=== PATIENT | female | born 1970 | race Caucasian/White ===

== ENCOUNTER 2017-11-04 09:46 | Emergency (ER) | payer SELFPAY | END 2017-11-04 10:41 | disposition home or self-care (01) | LOC: ERS 09:46 | DX: J40 Bronchitis, not specified as acute or chronic (principal); E03.9 Hypothyroidism, unspecified; F31.9 Bipolar disorder, unspecified; F41.9 Anxiety disorder, unspecified | CPT/HCPCS: 99283 ==

== ENCOUNTER 2018-05-21 10:23 | Emergency (ER) | payer SELFPAY ==
[2018-05-24 01:20] LABS: Chlamydia by PCR Not Detected (NotDetected); GC by PCR Not Detected (NotDetected)
== END 2018-05-21 11:37 | disposition home or self-care (01) ==
LOC: ERS 10:23
DX: J06.9 Acute upper respiratory infection, unspecified (principal); E05.90 Thyrotoxicosis, unspecified without thyrotoxic crisis or storm; F41.9 Anxiety disorder, unspecified; F31.9 Bipolar disorder, unspecified; Z79.899 Other long term (current) drug therapy
CPT/HCPCS: 87480; 87491; 87510; 87591; 87660; 99283

== ENCOUNTER 2021-10-29 13:18 | Emergency (ER) | payer SELFPAY ==
[2021-10-29] MEDS ORDERED: Acetaminophen 500 MG TAB ONE (13:41)
== END 2021-10-29 15:02 ==
LOC: ERS 13:18
DX: G89.29 Other chronic pain (principal); R51.9 Headache, unspecified
CPT/HCPCS: 71045; 93005

== ENCOUNTER 2023-09-14 14:18 | Emergency (ER) | payer SELFPAY | END 2023-09-14 15:43 | disposition home or self-care (01) | LOC: ERS 14:18 | DX: S40.012A Contusion of left shoulder, initial encounter (principal); F10.20 Alcohol dependence, uncomplicated; Z59.10 Inadequate housing, unspecified; Z56.0 Unemployment, unspecified; Z59.6 Low income; X58.XXXA Exposure to other specified factors, initial encounter ==